=== PATIENT | female | born 1995 | race Caucasian/White ===

== ENCOUNTER 2016-12-08 00:04 | Emergency (ER) | payer OTHER ==
[~2016-12-08] VITALS: Ht 157.5 cm; Wt 65.0 kg
[~2016-12-08 00:04] MED LIST: BACTRIM,SEPT1 TABLET PO; CEFTIN500 MG PO; CIPRO500 MG PO; CITRATE OF MAG296 ML PO; FOCALIN5 MG PO; KEFLEX500 MG PO; LAMICTAL150 M1 PO; LORTAB 5-325 M1 EACH PO; MACROBID100 MG PO; MEDROXYPR AC INJ 150; METADATE CD60 MG PO; MIRALAX17 GM PO; MOTRIN600 MG PO; PROTONIX20 MG PO; PYRIDIUM200 MG PO; SEROQUEL XR150 MG PO; ULTRAM50 MG PO; ZOFRAN ODT4 MG PO; ZOFRAN4 MG PO
[2016-12-08 01:53] VITALS: BP 123/80
== END 2016-12-08 02:02 | disposition home or self-care (01) ==
LOC: EXP 00:04 → EME 00:04 → EXP 02:02
PROC: 3E0234Z Introduction of Serum, Toxoid and Vaccine into Muscle, Percutaneous Approach (ICD-10-PCS; principal; 2016-12-08)
DX: S90.852A Superficial foreign body, left foot, initial encounter (principal); W45.8XXA Other foreign body or object entering through skin, initial encounter; Z23 Encounter for immunization; Y92.511 Restaurant or cafe as the place of occurrence of the external cause
CPT/HCPCS: 73630; 99281; 99284

== ENCOUNTER 2016-12-29 21:19 | Emergency (ER) | payer OTHER ==
[~2016-12-29] VITALS: Ht 167.6 cm; Wt 64.5 kg
[2016-12-29 22:09] LABS: MCH 29.8 PG (29.0-34.0); MCHC 33.8 G/DL (30.0-36.0); MCV 88.4 FL (83-99); MEAN PLAT.VOLUME 9.5 uM^3 (9.5-12.4); PLATELET COUNT 361 K/uL (156-360); RBC DIS.WIDTH-CV 11.9 % (11.8-14.6); RED BLOOD COUNT 5.43 M/uL (3.80-5.20); WHITE BLOOD COUNT 9.6 K/uL (4.1-10.2)
[2016-12-29 22:23] LABS: CHLORIDE 106 mEq/L (99-109); POTASSIUM 4.3 mEq/L (3.7-5.4); SODIUM 141 mEq/L (136-147)
[2016-12-29 22:25] LABS: GLUCOSE 121 mg/dL (70-99)
[2016-12-29 22:26] LABS: ANION GAP 12 MEQ/L (2-14)
[2016-12-29 22:27] LABS: TOTAL BILIRUBIN 0.4 mg/dL (0.0-1.0)
[2016-12-29 22:28] LABS: ALKALINE PHOSPHATASE 75 IU/L (3-129)
[2016-12-29 22:29] LABS: GFR ESTIMATE (CALCULATED) > 59 mL/min/
[2016-12-29 22:30] LABS: UREA NITROGEN (BUN) 14 mg/dL (9-23)
[2016-12-29 22:39] LABS: QUANTITATIVE HCG < 4.0 MIU/ML
[2016-12-29 23:57] LABS: ADD MIUA? YES; BILIRUBIN NEGATIVE; BLOOD LARGE; COLOR YELLOW ((YELLOW)); GLUCOSE (STRIP) NEGATIVE; KETONES NEGATIVE; LEUKOCYTES MODERATE; NITRITE NEGATIVE; PROTEIN (STRIP) 30; SPECIFIC GRAVITY 1.025 (1.000-1.030); UROBILINOGEN 0.2 MG/DL (0.2-1.0)
[2016-12-29] MEDS ORDERED: QUETIAPINE FUM200 MG PO (23:59)
[2016-12-30] LABS: LIPASE 15 U/L (1.0-51.0)
[2016-12-30 00:38] LABS: BACTERIA 2+ /HPF; EPITHELIAL CELLS 2+ /HPF; MUCUS 2+ /LPF; UCUL ADDED? YES; WHITE BLOOD CELLS 15-20 /HPF (0-5)
[2016-12-30] MEDS ORDERED: MACROBID100 MG PO (00:53)
[2016-12-30] MEDS ORDERED: ZOFRAN8 MG PO (00:53)
[2016-12-30 01:44] VITALS: BP 118/76
== END 2016-12-30 01:46 | disposition home or self-care (01) ==
LOC: EME 21:19
DX: N30.91 Cystitis, unspecified with hematuria (principal); R11.2 Nausea with vomiting, unspecified; E86.0 Dehydration; R51 Headache; F90.0 Attention-deficit hyperactivity disorder, predominantly inattentive type; F31.9 Bipolar disorder, unspecified; F17.200 Nicotine dependence, unspecified, uncomplicated
CPT/HCPCS: 74177; 80053; 81003; 83690; 84702; 85027; 87086; 99281; 99285; J1200; J1885; J2405; J7030

== ENCOUNTER 2017-05-30 16:39 | Emergency (ER) | payer OTHER ==
[~2017-05-30] VITALS: Ht 157.5 cm; Wt 71.3 kg
[~2017-05-30 16:39] MED LIST changes: +QUETIAPINE FUM200 MG PO; +ZOFRAN8 MG PO
[2017-05-30] MEDS ORDERED: NAPROSYN500 MG PO (18:13)
[2017-05-30 18:29] VITALS: BP 122/78
== END 2017-05-30 18:31 | disposition home or self-care (01) ==
LOC: EME 16:39
DX: M77.8 Other enthesopathies, not elsewhere classified (principal)
CPT/HCPCS: 99281; 99283

== ENCOUNTER 2017-11-29 16:51 | Emergency (ER) | payer OTHER ==
[~2017-11-29] VITALS: Ht 154.9 cm; Wt 69.5 kg
[~2017-11-29 16:51] MED LIST changes: +NAPROSYN500 MG PO
[2017-11-29] MEDS ORDERED: AMOXICILLIN500 MG PO (20:09)
[2017-11-29] MEDS ORDERED: ROBITUSSIN AC,T10 ML PO (20:09)
[2017-11-29] MEDS ORDERED: MEDROL DOSEPAK4 MG PO (20:09)
[2017-11-29 20:29] VITALS: BP 100/60
== END 2017-11-29 20:42 | disposition home or self-care (01) ==
LOC: EME 16:51
DX: J02.9 Acute pharyngitis, unspecified (principal)
CPT/HCPCS: 87651 90; 99281; 99283

== ENCOUNTER 2017-12-26 15:25 | Emergency (ER) | payer OTHER ==
[~2017-12-26] VITALS: Ht 160 cm; Wt 66.0 kg
[~2017-12-26 15:25] MED LIST changes: +AMOXICILLIN500 MG PO; +MEDROL DOSEPAK4 MG PO; +ROBITUSSIN AC,T10 ML PO
[2017-12-26 16:14] LABS: HEMATOCRIT 43.6 % (36.0-46.0); HEMOGLOBIN 15.2 G/DL (11.9-15.5); MCH 30.4 PG (29.0-34.0); MCHC 34.9 G/DL (30.0-36.0); MCV 87.2 FL (83-99); PLATELET COUNT 281 K/uL (156-360); RBC DIS.WIDTH-CV 11.6 % (11.8-14.6); RBC DIS.WIDTH-SD 36.8 % (39-53); WHITE BLOOD COUNT 7.2 K/uL (4.1-10.2)
[2017-12-26 16:25] LABS: ALBUMIN 4.7 g/dL (3.2-4.8); CHLORIDE 110 mEq/L (99-109); POTASSIUM 3.4 mEq/L (3.7-5.4); SODIUM 142 mEq/L (136-147)
[2017-12-26 16:27] LABS: GLUCOSE 90 mg/dL (70-99)
[2017-12-26 16:28] LABS: TOTAL PROTEIN 8.1 g/dL (6.4-8.3)
[2017-12-26 16:29] LABS: TOTAL BILIRUBIN 0.6 mg/dL (0.0-1.0)
[2017-12-26 16:31] LABS: ALKALINE PHOSPHATASE 59 IU/L (3-129); CREATININE 0.8 mg/dL (0.6-1.3); GFR ESTIMATE (CALCULATED) > 59 mL/min/
[2017-12-26 16:32] LABS: UREA NITROGEN (BUN) 10 mg/dL (9-23)
[2017-12-26 16:33] LABS: AST (GOT) 11 IU/L (2-34)
[2017-12-26 16:34] LABS: ALT (GPT) 8 IU/L (3-49)
[2017-12-26 16:42] LABS: QUANTITATIVE HCG < 4.0 MIU/ML
[2017-12-26 17:23] LABS: APPEARANCE CLOUDY ((CLEAR)); BILIRUBIN NEGATIVE; BLOOD LARGE; COLOR YELLOW ((YELLOW)); GLUCOSE (STRIP) NEGATIVE; KETONES 5; LEUKOCYTES LARGE; NITRITE NEGATIVE; PROTEIN (STRIP) 30; SPECIFIC GRAVITY 1.025 (1.000-1.030); UROBILINOGEN 0.2 MG/DL (0.2-1.0)
[2017-12-26 17:47] LABS: BACTERIA RARE /HPF; EPITHELIAL CELLS 2+ /HPF; HYALINE CASTS TNTC /LPF; MUCUS 3+ /LPF; UCUL ADDED? YES; WHITE BLOOD CELLS TNTC /HPF (0-5)
[2017-12-26] MEDS ORDERED: KEFLEX500 MG PO (18:16)
[2017-12-26] MEDS ORDERED: ZOFRAN ODT4 MG PO (18:16)
[2017-12-26 18:32] VITALS: BP 126/76
== END 2017-12-26 18:33 | disposition home or self-care (01) ==
LOC: EME 15:25
DX: N39.0 Urinary tract infection, site not specified (principal); R11.2 Nausea with vomiting, unspecified; F31.9 Bipolar disorder, unspecified; F90.9 Attention-deficit hyperactivity disorder, unspecified type
CPT/HCPCS: 80053; 81003; 84702; 85027; 87086; 99281; 99285; J0696; J1885; J2405; J7030

== ENCOUNTER 2018-04-29 17:24 | Emergency (ER) | payer OTHER ==
[~2018-04-29] VITALS: Ht 165.1 cm; Wt 62.4 kg
[2018-04-29 20:23] VITALS: BP 117/75
== END 2018-04-29 20:26 | disposition home or self-care (01) ==
LOC: EME 17:24
DX: T63.441A Toxic effect of venom of bees, accidental (unintentional), initial encounter (principal); R22.0 Localized swelling, mass and lump, head; Z72.0 Tobacco use
CPT/HCPCS: 99281; 99283

== ENCOUNTER 2018-05-24 18:09 | Emergency (ER) | payer OTHER ==
[~2018-05-24] VITALS: Ht 165.1 cm; Wt 63.4 kg
[2018-05-24 20:57] VITALS: BP 115/57
== END 2018-05-24 20:58 | disposition home or self-care (01) ==
LOC: EME 18:09
DX: M77.11 Lateral epicondylitis, right elbow (principal); S50.01XA Contusion of right elbow, initial encounter; W18.30XA Fall on same level, unspecified, initial encounter
CPT/HCPCS: 73090; 99281; 99284